=== PATIENT | female | born 1935 | race Caucasian/White ===

== ENCOUNTER 2023-02-10 09:40 | Outpatient (CLI) | payer OTHER | END 2023-02-10 09:42 | disposition home or self-care (01) | LOC: SONOGRAMA 09:40 | PROVIDERS: ATTEND Pathology Anatomic Pathology & Clinical Pathology | DX: D34 Benign neoplasm of thyroid gland (principal); E04.9 Nontoxic goiter, unspecified ==

== ENCOUNTER 2024-07-05 15:28 | Emergency (ER) | payer OTHER ==
[~2024-07-05] VITALS: Ht 157.5 cm; Wt 54.4 kg
[2024-07-05] MEDS ORDERED: EZALLOR SPRINKL20 MG PO (15:54)
[2024-07-05] MEDS ORDERED: RAZADYNE ER16 MG PO (15:54)
[2024-07-05] MEDS ORDERED: PLAVIX75 MG (15:54)
[2024-07-05] MEDS ORDERED: ZETIA10 MG (15:55)
[2024-07-05] MEDS ORDERED: STOOL SOFTENER50 MG (15:55)
[2024-07-05] MEDS ORDERED: AMLODIPINE BESYL5 MG PO (15:55)
[2024-07-05] MEDS ORDERED: ARTHRITIS PAIN650 M2 PO (15:56)
[2024-07-05] MEDS ORDERED: CALTRATE 600+D1 EAC1 PO (15:56)
[2024-07-05] MEDS ORDERED: MELATONIN10 M2 (15:56)
[2024-07-05] MEDS ORDERED: MEMANTINE HCL10 MG PO (15:57)
[2024-07-05] MEDS ORDERED: GRALISE600 MG (15:57)
[2024-07-05] MEDS ORDERED: LEVOXYL50 MCG (15:58)
[2024-07-05] MEDS ORDERED: MAXIMUM D3325 MCG PO (15:58)
[2024-07-05] MEDS ORDERED: DICLOFENAC-MIS1 EAC3 (15:58)
[2024-07-05] MEDS ORDERED: 0.9 % SODIUM CHLORIDE 1,000 ML IV SCH (16:30)
[2024-07-05 17:34] LABS: HEMATOCRIT 36.6 % (36.0-45.00); HEMOGLOBIN 12.3 g/dL (12.0-15.00); MEAN CELL VOLUME 97.8 fL (80.00-100.00); MEAN CORPUSCULAR HGB CONC 33.8 g/dl (32.0-36.0); PLATELET COUNT 270 K/uL (150-450); RED BLOOD COUNT 3.74 M/uL (4.00-6.00); RED CELL DISTRIBUTION WIDTH 15.2 % (11.5-14.5)
[2024-07-05 17:54] LABS: INR 1.33; PARTIAL THROMBOPLASTIN TIME 28.5 SECONDS (22.0-34.0); PROTHROMBIN TIME 14.2 SECONDS (9.0-11.5)
[2024-07-05 18:10] LABS: ALBUMIN 2.4 gm/dL (3.4-5.0); CALCIUM 9.1 mg/dL (8.5-10.1); CREATININE SERUM 0.93 mg/dL (0.55-1.02); GFR 56.76; GLOBULINA 4.4 G/DL (2.4-3.5); POTASSIUM 4.45 mEq/L (3.5-5.1); TOTAL PROTEIN 6.8 gm/dL (6.4-8.2)
[2024-07-05 18:20] LABS: BILIRUBIN,UNCONJUGATED 2.53 mg/dL (0.0-0.6)
[2024-07-05 18:21] LABS: BILIRUBIN TOTAL 21.41 mg/dL (0.3-1.2); BILIRUBIN,CONJUGATED 18.88 mg/dL (0.0-0.2)
[2024-07-05] MEDS ORDERED: ONDANSETRON HCL 2 MG/ML VIAL IV ONE (23:30)
== END 2024-07-06 06:09 | disposition designated cancer center or children's hospital (05) ==
LOC: ER 15:30
PROVIDERS: General Practice
DX: R53.81 Other malaise (principal); R17 Unspecified jaundice; K86.89 Other specified diseases of pancreas; I10 Essential (primary) hypertension; E03.8 Other specified hypothyroidism
CPT/HCPCS: 36415; 74177; 76700; 96365; 96366; 99285; J2405; J7030; Q9965